=== PATIENT | male | born 1970 | race African-American/Black ===

== ENCOUNTER 2020-02-25 19:49 | Emergency (ER) | payer MEDICAID ==
--- NOTE | 2020-02-25 20:12 | ER Document Report ---
ED Medical Screen (RME) - General Chief Complaint: Other Stated Complaint: URINARY CATHETER NEEDS TO BE FLUSHED Time Seen by Provider: 02/25/20 20:09 Information source: Patient Notes: Patient states that he had prostate surgery yesterday and received a Ramirez catheter. Patient states that the catheter has not been draining and he leaked urine about an hour ago around the catheter. Patient complains of feeling as t paula he needs to void. I have greeted and performed a rapid initial assessment of this patient. A comprehensive ED assessment and evaluation of the patient, analysis of test results and completion of the medical decision making process will be conducted by additional ED providers. Physical Exam - Vital signs Vitals: Temp Pulse Resp BP Pulse Ox 98.5 F 85 18 121/77 100 02/25/20 19:59 02/25/20 19:59 02/25/20 19:59 02/25/20 19:59 02/25/20 19:59 - Abdominal Distension: Distended bladder - Back Back: No: CVA tenderness Course - Vital Signs Vital signs: Temp Pulse Resp BP Pulse Ox 98.5 F 85 18 121/77 100 02/25/20 19:59 02/25/20 19:59 02/25/20 19:59 02/25/20 19:59 02/25/20 19:59
[2020-02-25 20:36] LABS: ABSOLUTE BASOPHILS # (AUTO) 0.1 10^3/uL (0.0-0.2); ABSOLUTE EOSINOPHILS # (AUTO) 0.3 10^3/uL (0.0-0.6); ABSOLUTE LYMPHOCYTES (AUTO) 1.7 10^3/uL (0.5-4.7); ABSOLUTE MONOCYTES (AUTO) 0.8 10^3/uL (0.1-1.4); ABSOLUTE NEUT (AUTO) 7.7 10^3/uL (1.7-8.2); BASOPHILS % (AUTO) 0.9 % (0-2); HEMATOCRIT 28.3 % (37.9-51.0); HEMOGLOBIN 9.3 g/dL (13.5-17.0); LYMPHOCYTES % (AUTO) 15.9 % (13-45); MEAN CORPUSCULAR HEMOGLOBIN 27.6 pg (27.0-33.4); MEAN CORPUSCULAR HGB CONC 32.7 g/dL (32.0-36.0); MEAN CORPUSCULAR VOLUME 84 fl (80-97); MONOCYTES % (AUTO) 7.8 % (3-13); PLATELET COUNT 333 10^3/uL (150-450); RED BLOOD COUNT 3.36 10^6/uL (4.35-5.55); RED CELL DISTRIBUTION WIDTH 20.9 % (11.5-14.0); SEGMENTED NEUTROPHILS % (AUTO) 72.4 % (42-78); TOTAL CELLS COUNTED % (AUTO) 100 %; WHITE BLOOD COUNT 10.7 10^3/uL (4.0-10.5)
[2020-02-25 20:49] LABS: ANION GAP 5 (5-19); BLOOD UREA NITROGEN 33 mg/dL (7-20); CALCIUM 8.9 mg/dL (8.4-10.2); CARBON DIOXIDE 26 mmol/L (22-30); CHLORIDE 106 mmol/L (98-107); GLUCOSE 98 mg/dL (75-110)
[2020-02-25 21:21] LABS: APPEARANCE,URINE SLIGHTLY-CLOUDY; BILIRUBIN,URINE NEGATIVE (NEGATIVE); GLUCOSE, URINE NEGATIVE (NEGATIVE); KETONES,URINE NEGATIVE (NEGATIVE); LEUKOCYTE ESTERASE,URINE LARGE (NEGATIVE); NITRITE,URINE NEGATIVE (NEGATIVE); PROTEIN,URINE 100 mg/dL (NEGATIVE); URINE SPECIFIC GRAVITY 1.005; UROBILINOGEN,URINE NEGATIVE mg/dL (<2.0)
[2020-02-25 21:24] LABS: COLOR,URINE YELLOW
[2020-02-25 21:48] VITALS: BP 124/71
--- NOTE | 2020-02-26 05:07 | ER Document Report ---
Entered by JENNY MUÑOZ SCRIBE 02/25/[id number] Acting as scribe for:AFIA TIAN DO ED GI/ - General Chief Complaint: Problem with Urinary Catheter Stated Complaint: URINARY CATHETER NEEDS TO BE FLUSHED Time Seen by Provider: 02/25/20 20:09 Mode of Arrival: Ambulatory Information source: Patient Notes: This 49 year old male patient presents to the emergency department today with complaints of a problem with his hager catheter. Patient had what sounds like a TURP procedure performed yesterday in [place] and had a hager catheter placed. Patient states he has not had any urine draining out of it today and he thinks it is a problem with the catheter. Patient has known kidney failure, reporting that his creatinine yesterday was 2.7. - Related Data Allergies/Adverse Reactions: shellfish derived Allergy (Verified 02/25/20 20:44) Past Medical History - General Information source: Patient - Social History Smoking Status: Unknown if Ever Smoked Cigarette use (# per day): No Frequency of alcohol use: None Drug Abuse: None Lives with: Family Family History: Reviewed & Not Pertinent - Medical History Medical History: Negative Past Surgical History: Reports: Hx Genitourinary Surgery Review of Systems - Review of Systems Constitutional: No symptoms reported EENT: No symptoms reported Cardiovascular: No symptoms reported Respiratory: No symptoms reported Gastrointestinal: No symptoms reported Genitourinary: See HPI, Other - hager catheter not draining Male Genitourinary: No symptoms reported Musculoskeletal: No symptoms reported Skin: No symptoms reported Hematologic/Lymphatic: No symptoms reported Neurological/Psychological: No symptoms reported -: Yes All other systems reviewed and negative Physical Exam - Vital signs Vitals: Temp Pulse Resp BP Pulse Ox 98.5 F 85 18 121/77 100 02/25/20 19:59 02/25/20 19:59 02/25/20 19:59 02/25/20 19:59 02/25/20 19:59 Interpretation: Normal - General General appearance: Alert In distress: None - Appears uncomfortable - HEENT Head: Normocephalic, Atraumatic Eyes: Normal Pupils: PERRL - Respiratory Respiratory status: No respiratory distress Chest status: Nontender Breath sounds: Normal Chest palpation: Normal - Cardiovascular Rhythm: Regular Heart sounds: Normal auscultation Murmur: No - Abdominal Inspection: Normal Distension: No distension Bowel sounds: Normal Tenderness: Other - Suprapubic Organomegaly: No organomegaly - Back Back: Normal, Nontender - Extremities General upper extremity: Normal inspection, Nontender, Normal color, Normal ROM, Normal temperature General lower extremity: Normal inspection, Nontender, Normal color, Normal ROM, Normal temperature, Normal weight bearing. No: Casimiro's sign - Neurological Neuro grossly intact: Yes Cognition: Normal Orientation: AAOx4 [place] Coma Scale Eye Opening: Spontaneous [place] Coma Scale Verbal: Oriented [place] Coma Scale Motor: Obeys Commands [place] Coma Scale Total: 15 Speech: Normal Motor strength normal: LUE, RUE, LLE, RLE Sensory: Normal - Psychological Associated symptoms: Normal affect, Normal mood - Skin Skin Temperature: Warm Skin Moisture: Dry Skin Color: Normal Course - Re-evaluation Re-evalutation: Patient with no further complaints or concerns after Hager irrigated and nursing change tubing so that catheter would drain. Creatinine apparently at baseline. Patient is already on ciprofloxacin 250 mg twice daily. He is supposed to see his urologist tomorrow. Return if further concerns or symptoms. Stable for discharge. Urine culture sent. - Vital Signs Vital signs: Temp Pulse Resp BP Pulse Ox 98.6 F 84 18 124/71 94 02/25/20 21:47 02/25/20 21:47 02/25/20 21:47 02/25/20 21:47 02/25/20 21:47 - Laboratory Result Diagrams: 02/25/20 20:24 02/25/20 20:24 Laboratory results interpreted by me: 02/25/20 02/25/20 02/25/20 20:24 20:24 21:02 WBC 10.7 H RBC 3.36 L Hgb 9.3 L Hct 28.3 L RDW 20.9 H BUN 33 H Creatinine 2.78 H Est GFR ( Amer) 29 L Est GFR (MDRD) Non-Af 24 L Urine Protein 100 H Urine Blood LARGE H Ur Leukocyte Esterase LARGE H Discharge - Discharge Clinical Impression: Hager catheter problem Qualifiers: Encounter type: initial encounter Qualified Code(s): T83.9XXA - Unspecified complication of genitourinary prosthetic device, implant and graft, initial encounter Condition: Stable Disposition: HOME, SELF-CARE Instructions: Hager Catheter Care ([facility]) Additional Instructions: Please follow-up with your urologist. Your urine has been sent for culture. Your creatinine today is 2.7. I personally performed the services described in the documentation, reviewed and edited the documentation which was dictated to the scribe in my presence, and it accurately records my words and actions.
== END 2020-02-25 21:53 | disposition home or self-care (01) ==
LOC: ER 19:49
DX: T83.9XXA Unspecified complication of genitourinary prosthetic device, implant and graft, initial encounter (principal); Y84.6 Urinary catheterization as the cause of abnormal reaction of the patient, or of later complication, without mention of misadventure at the time of the procedure
CPT/HCPCS: 36415; 80048; 81001; 85025; 87086; 99283